=== PATIENT | female | born 1995 | race Two or more races ===

== ENCOUNTER 2018-07-16 16:07 | Emergency (ER) | payer OTHER ==
[~2018-07-16] VITALS: Ht 160 cm; Wt 85.4 kg
[2018-07-16] MEDS ORDERED: ONDANSETRON PF 4 MG/2 ML VIAL. ONE (16:41)
[2018-07-16] MEDS ORDERED: IV NORMAL SALINE 1,000ML 1,000 ML IV ONE ×4 (16:45→19:00)
[2018-07-16 16:50] LABS: BASO # 0.1 x10^3/uL (0.0-0.2); BASO % 0 % (0-3); EOS # 0.1 x10^3/uL (0.0-0.7); EOS % 0 % (0-3); HEMATOCRIT 43.7 % (36.0-47.0); LYMPH # 1.3 x10^3/uL (1.0-4.8); LYMPH % 7 % (24-48); MEAN CORPUSCULAR HEMOGLOBIN 30 pg (25-35); MEAN CORPUSCULAR HGB CONC 34 g/dL (31-37); MEAN CORPUSCULAR VOLUME 87 fL (79-100); MONO # 0.9 x10^3/uL (0.0-1.1); MONO % 5 % (0-9); NEUT # 15.6 x10^3uL (1.8-7.7); NEUT % 87 % (31-73); PLATELET COUNT 300 x10^3/uL (140-400); RED BLOOD COUNT 5.02 x10^6/uL (3.50-5.40); RED CELL DISTRIBUTION WIDTH 13.2 % (11.5-14.5); WHITE BLOOD COUNT 17.9 x10^3/uL (4.0-11.0)
--- NOTE | 2018-07-16 17:02 | PHYS DOC ---
Past History Past Medical History: No Pertinent History Past Surgical History: No Surgical History Alcohol Use: Occasionally Drug Use: None Adult General Chief Complaint Chief Complaint: ABDOMINAL PAIN HPI HPI 23-year-old female presents with diarrhea, abdominal cramping, nausea without vomiting. Patient states that she is having many episodes of diarrhea that started yesterday. The diarrhea is very watery. She is concerned about dehydration. She has been trying to drink water, but then she gets abdominal cramps and has another episode of diarrhea. She's had some nausea but no vomiting. Her sister has similar symptoms. She denies fever but has had chills. Review of Systems Review of Systems Constitutional: Chills [] Eyes: Denies change in visual acuity, redness, or eye pain [] HENT: Denies nasal congestion or sore throat [] Respiratory: Denies cough or shortness of breath [] Cardiovascular: No additional information not addressed in HPI [] GI: Diffuse abdominal pain, nausea, diarrhea[] : Denies dysuria or hematuria [] Musculoskeletal: Denies back pain or joint pain [] Integument: Denies rash or skin lesions [] Neurologic: Denies headache, focal weakness or sensory changes [] Endocrine: Denies polyuria or polydipsia [] All other systems were reviewed and found to be within normal limits, except as documented in this note. Current Medications Current Medications Current Medications Medications (Trade) Dose Ordered Sig/Natasha Start Time Stop Time Status Last Admin Dose Admin Ondansetron HCl (Zofran) 4 mg STK-MED ONCE 07/16/18 16:41 07/16/18 16:42 DC Sodium Chloride 1,000 ml @ 1,000 mls/hr 1X ONCE 07/16/18 16:45 07/16/18 17:44 Allergies Allergies Allergies Coded Allergies Type Severity Reaction Last Updated Verified No Known Drug Allergies 07/16/18 No Physical Exam Physical Exam Constitutional: Well developed, well nourished, no acute distress, non-toxic appearance. [] HENT: Normocephalic, atraumatic, bilateral external ears normal, oropharynx moist, no oral exudates, nose normal. [] Eyes: PERRLA, EOMI, conjunctiva normal, no discharge. [] Neck: Normal range of motion, no tenderness, supple, no stridor. [] Cardiovascular:Heart rate regular rhythm, no murmur [] Lungs & Thorax: Bilateral breath sounds clear to auscultation [] Abdomen: Bowel sounds normal, soft, no tenderness, no masses, no pulsatile masses. [] Skin: Warm, dry, no erythema, no rash. [] Back: No tenderness, no CVA tenderness. [] Extremities: No tenderness, no cyanosis, no clubbing, ROM intact, no edema. [] Neurologic: Alert and oriented X 3, normal motor function, normal sensory function, no focal deficits noted. [] Psychologic: Affect normal, judgement normal, mood normal. [] Current Patient Data Vital Signs Vital Signs Date Time Temp Pulse Resp B/P (MAP) Pulse Ox O2 Delivery O2 Flow Rate FiO2 07/16/18 16:07 99.8 111 22 100 Room Air Lab Results Laboratory Tests Test 07/16/18 16:15 White Blood Count 17.9 x10^3/uL (4.0-11.0) H Red Blood Count 5.02 x10^6/uL (3.50-5.40) Hemoglobin 15.0 g/dL (12.0-15.5) Hematocrit 43.7 % (36.0-47.0) Mean Corpuscular Volume 87 fL (79-100) Mean Corpuscular Hemoglobin 30 pg (25-35) Mean Corpuscular Hemoglobin Concent 34 g/dL (31-37) Red Cell Distribution Width 13.2 % (11.5-14.5) Platelet Count 300 x10^3/uL (140-400) Neutrophils (%) (Auto) 87 % (31-73) H Lymphocytes (%) (Auto) 7 % (24-48) L Monocytes (%) (Auto) 5 % (0-9) Eosinophils (%) (Auto) 0 % (0-3) Basophils (%) (Auto) 0 % (0-3) Neutrophils # (Auto) 15.6 x10^3uL (1.8-7.7) H Lymphocytes # (Auto) 1.3 x10^3/uL (1.0-4.8) Monocytes # (Auto) 0.9 x10^3/uL (0.0-1.1) Eosinophils # (Auto) 0.1 x10^3/uL (0.0-0.7) Basophils # (Auto) 0.1 x10^3/uL (0.0-0.2) Platelet Estimate Pending EKG EKG Sinus tachycardia, rate 122, normal axis, no ST elevations or depressions.[] Radiology/Procedures Radiology/Procedures [] Impressions: AP view abdomen 07/16/2018 CLINICAL INDICATION: Abdominal pain. COMPARISON: None. FINDINGS: There is a nonobstructive bowel gas pattern. Visualized osseous structures unremarkable. IMPRESSION: No radiographic evidence of bowel obstruction or pneumoperitoneum. Electronically signed by: Brandyn Hayes MD (07/16/2018 6:44 PM) [facility] DICTATED AND SIGNED BY: BRANDYN HAYES MD DATE: 07/16/181842 CC: SHAWANDA MAIN DO; NAT [place] CNM Course & Med Decision Making Course & Med Decision Making Pertinent Labs and Imaging studies reviewed. (See chart for details) The patient's labs are significant for white count of 17 with a left shift. After 1 L of fluids she is still tachycardic at 122. It is sinus. Urinalysis is pending. KUB is unremarkable. The patient's urinalysis is suggestive of infection. I will treat her with Macrobid for 5 days. Will give the first dose in the ED. I'm also concerned her diarrhea may be infectious given the profuse output, high white count, and volume depletion. I will give her 1 g of azithromycin in the ED. She is stable for discharge at this time. [] Dragon Disclaimer Dragon Disclaimer This electronic medical record was generated, in whole or in part, using a voice recognition dictation system. Departure Departure: Referrals: NAT [place]NADA CNM (PCP) Scripts Nitrofurantoin Monohyd/M-Cryst (MACROBID 100 MG CAPSULE) 100 Mg Capsule 1 CAP PO BID for uti for 5 Days, #10 CAP Prov: SHAWANDA MAIN DO 07/16/18 SHAWANDA MAIN DO Jul 16, 2018 17:02
[2018-07-16 17:05] LABS: ALBUMIN 4.2 g/dL (3.4-5.0); CALCIUM 9.5 mg/dL (8.5-10.1); CREATININE 0.9 mg/dL (0.6-1.0); GFR 77.6; POTASSIUM 3.8 mmol/L (3.5-5.1); TOTAL BILIRUBIN 0.5 mg/dL (0.2-1.0); TOTAL PROTEIN 8.6 g/dL (6.4-8.2)
[2018-07-16] MEDS ORDERED: ONDANSETRON PF 4 MG/2 ML VIAL. IV ONE (17:10)
[2018-07-16 17:23] LABS: % BANDS 17 % (0-9); % LYMPHS 7 % (24-48); % MONOS 5 % (0-10); % SEGS 71 % (35-66); PLT ESTIMATE ADEQUATE (ADEQUATE)
[2018-07-16 17:24] LABS: TOXIC GRANULATION SLIGHT; TOXIC VACUOLATION SLIGHT
[2018-07-16] MEDS ORDERED: LOPERAMIDE 2 MG CAPSULE PO ONE (17:30)
--- NOTE | 2018-07-16 18:47 | RAD ---
AP view abdomen 07/16/2018 CLINICAL INDICATION: Abdominal pain. COMPARISON: None. FINDINGS: There is a nonobstructive bowel gas pattern. Visualized osseous structures unremarkable. IMPRESSION: No radiographic evidence of bowel obstruction or pneumoperitoneum. Electronically signed by: Vidal Hayes MD (07/16/2018 6:44 PM) [facility]
[2018-07-16 19:05] LABS: BACTERIA,URINE MANY /HPF (0-FEW); BILIRUBIN,URINE NEG (NEG); CLARITY,URINE HAZY; COLOR,URINE STRAW; GLUCOSE,URINE NEG (NEG); NITRITE,URINE NEG (NEG); RBC,URINE OCC /HPF (0-2); UROBILINOGEN,URINE 0.2 mg/dL (0.2 mg/dL)
[2018-07-16 19:06] LABS: SQUAMOUS EPITHELIAL CELL,UR MOD /LPF
[2018-07-16] MEDS ORDERED: AZITHROMYCIN 250 MG TABLET. ONE (19:13)
[2018-07-16] MEDS ORDERED: NITROFURANTOIN MONOHYD/M-CRYST 100 MG CAPSULE. PO ONE ×2 (19:13→19:30)
[2018-07-16] MEDS ORDERED: NITR100C62 PO (19:14)
[2018-07-16 19:27] VITALS: BP 114/58
[2018-07-16] MEDS ORDERED: AZITHROMYCIN 250 MG TABLET. PO ONE (19:30)
[2018-07-17] MEDS ORDERED: DIPH1TAB PO (22:44)
[2018-07-17] MEDS ORDERED: ONDA4TAB12 PO (22:44)
--- NOTE | 2018-07-18 14:19 | EKG ---
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 POSSIBLY ABNORMAL ECG RI6.01 Unconfirmed report No previous ECG available for comparison Electronically Signed On 07-18-2018 16:01:40 [employer] OFFICER by Russell Parker
== END 2018-07-16 19:27 | disposition home or self-care (01) ==
LOC: ER 16:07
DX: R19.7 Diarrhea, unspecified (principal); R10.84 Generalized abdominal pain; R11.0 Nausea
CPT/HCPCS: 36415; 74018; 80053; 81001; 81025; 83690; 85007; 85025; 87086; 96361; 96374; 99285; J0456; J2405; J7030

== ENCOUNTER 2018-07-17 20:59 | Emergency (ER) | payer OTHER ==
[~2018-07-17] VITALS: Ht 160 cm; Wt 83.9 kg
[~2018-07-17 20:59] MED LIST: NITR100C62 PO
[2018-07-17] MEDS ORDERED: ONDANSETRON PF 4 MG/2 ML VIAL. ONE (21:40)
[2018-07-17] MEDS ORDERED: DIPHENOXYLATE/ATROPINE TABLET. PO ONE (22:00)
[2018-07-17] MEDS ORDERED: ONDANSETRON PF 4 MG/2 ML VIAL. IV ONE (22:00)
[2018-07-17] MEDS ORDERED: IV NORMAL SALINE 1,000ML 1,000 ML IV SCH (22:00)
[2018-07-17] MEDS ORDERED: ACETAMINOPHEN 500 MG TABLET PO ONE (22:00)
[2018-07-17 22:08] LABS: BASO % 0 % (0-3); EOS % 0 % (0-3); HEMATOCRIT 41.2 % (36.0-47.0); HEMOGLOBIN 14.1 g/dL (12.0-15.5); LYMPH # 1.1 x10^3/uL (1.0-4.8); LYMPH % 10 % (24-48); MEAN CORPUSCULAR HEMOGLOBIN 30 pg (25-35); MEAN CORPUSCULAR HGB CONC 34 g/dL (31-37); MEAN CORPUSCULAR VOLUME 87 fL (79-100); MONO # 0.6 x10^3/uL (0.0-1.1); MONO % 5 % (0-9); NEUT # 9.7 x10^3uL (1.8-7.7); NEUT % 85 % (31-73); PLATELET COUNT 238 x10^3/uL (140-400); RED BLOOD COUNT 4.72 x10^6/uL (3.50-5.40); RED CELL DISTRIBUTION WIDTH 12.7 % (11.5-14.5); WHITE BLOOD COUNT 11.4 x10^3/uL (4.0-11.0)
[2018-07-17 22:22] LABS: ALBUMIN 3.9 g/dL (3.4-5.0); ALBUMIN/GLOBULIN RATIO 0.9 (1.0-1.7); CREATININE 0.9 mg/dL (0.6-1.0); GFR 77.6; POTASSIUM 3.1 mmol/L (3.5-5.1); TOTAL BILIRUBIN 0.7 mg/dL (0.2-1.0); TOTAL PROTEIN 8.3 g/dL (6.4-8.2)
[2018-07-17] MEDS ORDERED: DIPH1TAB PO (22:44)
[2018-07-17] MEDS ORDERED: ONDA4TAB12 PO (22:44)
--- NOTE | 2018-07-17 22:44 | PHYS DOC ---
Past History Past Medical History: No Pertinent History Past Surgical History: No Surgical History Alcohol Use: Occasionally Drug Use: None Adult General Chief Complaint Chief Complaint: NAUSEA/VOMITING/DIARRHEA HPI HPI Patient is a 23-year-old female who presents with complaint of nausea with vomiting and diarrhea. Patient was seen here yesterday with similar complaints and was diagnosed with urinary tract infection. She indicates that she was prescribed antibiotics that she started today. She states that she was having the vomiting and diarrhea yesterday as well and states that they had given her some medication for the symptoms while she was here but was not discharged home with any nausea or diarrhea medication. She states that she has not been able to keep anything down due to the vomiting. She states that either she vomits it up or go straight through her. She does complain of abdominal cramping that she rates as moderate. Review of Systems Review of Systems Constitutional: Complaints of fever and chills[] Respiratory: Denies cough or shortness of breath [] Cardiovascular: No additional information not addressed in HPI [] GI: Complains of abdominal cramping with nausea, vomiting and diarrhea[] : Denies dysuria or hematuria [] Musculoskeletal: Denies back pain or joint pain [] All other systems were reviewed and found to be within normal limits, except as documented in this note. Current Medications Current Medications Current Medications Medications (Trade) Dose Ordered Sig/Natasha Start Time Stop Time Status Last Admin Dose Admin Acetaminophen (Tylenol) 1,000 mg 1X ONCE 07/17/18 22:00 07/17/18 22:01 DC 07/17/18 21:50 1,000 MG Diphenoxylate HCl/ Atropine (Lomotil) 2 tab 1X ONCE 07/17/18 22:00 07/17/18 22:01 DC 07/17/18 21:51 2 TAB Ondansetron HCl (Zofran) 4 mg 1X ONCE 07/17/18 22:00 07/17/18 22:01 DC 07/17/18 21:51 4 MG Sodium Chloride 1,000 ml @ 1,000 mls/hr Q1H 07/17/18 22:00 07/17/18 22:59 07/17/18 21:50 1,000 MLS/HR Allergies Allergies Allergies Coded Allergies Type Severity Reaction Last Updated Verified No Known Drug Allergies 07/16/18 No Physical Exam Physical Exam Constitutional: Well developed, well nourished, no acute distress, non-toxic appearance. [] HENT: Normocephalic, atraumatic, bilateral external ears normal, oropharynx moist, no oral exudates, nose normal. [] Eyes: PERRLA, EOMI, conjunctiva normal, no discharge. [] Neck: Normal range of motion, no tenderness, supple, no stridor. [] Cardiovascular:Heart rate regular rhythm [] Lungs & Thorax: Bilateral breath sounds clear to auscultation [] Abdomen: Bowel sounds normal, soft, no tenderness. [] Skin: Warm, dry, no erythema, no rash. [] Extremities: No tenderness, no cyanosis, no clubbing, ROM intact, no edema. [] Neurologic: Alert and oriented X 3, normal motor function, normal sensory function, no focal deficits noted. [] Current Patient Data Vital Signs Vital Signs Date Time Temp Pulse Resp B/P (MAP) Pulse Ox O2 Delivery O2 Flow Rate FiO2 07/17/18 20:59 100.9 109 20 98 Room Air Lab Results Laboratory Tests Test 07/17/18 21:45 White Blood Count 11.4 x10^3/uL (4.0-11.0) H Red Blood Count 4.72 x10^6/uL (3.50-5.40) Hemoglobin 14.1 g/dL (12.0-15.5) Hematocrit 41.2 % (36.0-47.0) Mean Corpuscular Volume 87 fL (79-100) Mean Corpuscular Hemoglobin 30 pg (25-35) Mean Corpuscular Hemoglobin Concent 34 g/dL (31-37) Red Cell Distribution Width 12.7 % (11.5-14.5) Platelet Count 238 x10^3/uL (140-400) Neutrophils (%) (Auto) 85 % (31-73) H Lymphocytes (%) (Auto) 10 % (24-48) L Monocytes (%) (Auto) 5 % (0-9) Eosinophils (%) (Auto) 0 % (0-3) Basophils (%) (Auto) 0 % (0-3) Neutrophils # (Auto) 9.7 x10^3uL (1.8-7.7) H Lymphocytes # (Auto) 1.1 x10^3/uL (1.0-4.8) Monocytes # (Auto) 0.6 x10^3/uL (0.0-1.1) Eosinophils # (Auto) 0.0 x10^3/uL (0.0-0.7) Basophils # (Auto) 0.0 x10^3/uL (0.0-0.2) Sodium Level 134 mmol/L (136-145) L Potassium Level 3.1 mmol/L (3.5-5.1) L Chloride Level 97 mmol/L (98-107) L Carbon Dioxide Level 26 mmol/L (21-32) Anion Gap 11 (6-14) Blood Urea Nitrogen 7 mg/dL (7-20) Creatinine 0.9 mg/dL (0.6-1.0) Estimated GFR (Cockcroft-Gault) 77.6 BUN/Creatinine Ratio 8 (6-20) Glucose Level 110 mg/dL (70-99) H Calcium Level 9.0 mg/dL (8.5-10.1) Total Bilirubin 0.7 mg/dL (0.2-1.0) Aspartate Amino Transferase (AST) 19 U/L (15-37) Alanine Aminotransferase (ALT) 36 U/L (14-59) Alkaline Phosphatase 86 U/L (46-116) Total Protein 8.3 g/dL (6.4-8.2) H Albumin 3.9 g/dL (3.4-5.0) Albumin/Globulin Ratio 0.9 (1.0-1.7) L EKG EKG [] Radiology/Procedures Radiology/Procedures [] Course & Med Decision Making Course & Med Decision Making Pertinent Labs and Imaging studies reviewed. (See chart for details) [] Dragon Disclaimer Dragon Disclaimer This electronic medical record was generated, in whole or in part, using a voice recognition dictation system. Departure Departure: Impression: Primary Impression: Gastroenteritis Disposition: 01 HOME, SELF-CARE Condition: STABLE Referrals: NAT [place]NA[place] CNM (PCP) Patient Instructions: Viral Gastroenteritis Scripts Diphenoxylate Hcl/Atropine (LOMOTIL TABLET) 1 Each Tablet 1 TAB PO TID PRN for DIARRHEA, #15 TAB Prov: MEMO MARTÍNEZ Jr. DO 07/17/18 Ondansetron (ONDANSETRON ODT) 4 Mg Tab.rapdis 1 TAB PO PRN Q6-8HRS PRN for NAUSEA/VOMITING, #16 TAB Prov: MEMO MARTÍNEZ Jr. DO 07/17/18 MEMO MARTÍNEZ Jr. DO Jul 17, 2018 22:44
[2018-07-17] MEDS ORDERED: POTASSIUM CHLORIDE 20 MEQ TABLET.ER. PO ONE (23:00)
[2018-07-17 23:29] VITALS: BP 108/43
== END 2018-07-17 23:34 | disposition home or self-care (01) ==
LOC: ER 20:59
DX: K52.9 Noninfective gastroenteritis and colitis, unspecified (principal)
CPT/HCPCS: 36415; 80053; 85025; 96361; 96374; 99284; J2405; J7030

== ENCOUNTER 2018-12-01 05:02 | Emergency (ER) | payer OTHER ==
[~2018-12-01] VITALS: Ht 160 cm; Wt 87.1 kg
[~2018-12-01 05:02] MED LIST changes: +DIPH1TAB PO; +ONDA4TAB12 PO
--- NOTE | 2018-12-01 05:04 | ED.ADGEN ---
Past History Past Medical History: No Pertinent History, Gallstones, GERD, UTI Past Surgical History: No Surgical History Alcohol Use: Occasionally Drug Use: None Adult General Chief Complaint Chief Complaint ".. I got this severe Rt. upper abd. and epigastric pain... nauseated.. "... " My mom says it probably gall stones... because in runs in the family..." HPI HPI Patient is a 23 year old female who presents with above hx and complaints of right upper abdomen and epigastric pain. Patient states pain seemed to start after eating at [employer]. Patient has not had previous episodes of gastritis or abd. colic. However biliary colic and stones run in her family on her mother's side. Patient denies any other intake of bad food. No travel. No specific ill contacts. No history trauma. Does have history of prior UTI. No hx of STD. No history immunosuppression. Has had nausea and vomiting. No history of dark or tarry stools. Patient currently rating her pain as 9-10 out of 10. H&H has history of prior repair 2 pregnancies with 3 deliveries. Review of Systems Review of Systems Constitutional: Denies fever or chills [] Eyes: Denies change in visual acuity, redness, or eye pain [] HENT: Denies nasal congestion or sore throat [] Respiratory: Denies cough or shortness of breath [] Cardiovascular: No additional information not addressed in HPI [] GI: Right upper quadrant and epigastric abdominal pain, nausea, vomiting. Denies , bloody stools or diarrhea [] : Denies dysuria or hematuria [] Musculoskeletal: Denies back pain or joint pain [] Integument: Denies rash or skin lesions [] Neurologic: Denies headache, focal weakness or sensory changes [] Endocrine: Denies polyuria or polydipsia [] All other systems were reviewed and found to be within normal limits, except as documented in this note. Family History Family History Multiple family members that have had gallstones- cholecystectomy Current Medications Current Medications Current Medications Medications (Trade) Dose Ordered Sig/Natasha Start Time Stop Time Status Last Admin Dose Admin Ceftriaxone Sodium 1 gm/ Sodium Chloride 50 ml @ 100 mls/hr 1X ONCE 12/01/18 08:30 12/01/18 08:59 DC 12/01/18 08:24 100 MLS/HR Ceftriaxone Sodium (Rocephin) 1 gm STK-MED ONCE 12/01/18 08:15 12/01/18 08:16 DC Famotidine (Pepcid Vial) 20 mg 1X ONCE 12/01/18 06:00 12/01/18 06:01 DC 12/01/18 05:47 20 MG Info (Do NOT chart on this entry -- for MONITORING) 1 each PRN DAILY PRN 12/01/18 06:00 12/01/18 09:58 DC Iohexol (Omnipaque 240 Mg/ml) 30 ml 1X ONCE 12/01/18 06:00 12/01/18 06:01 DC 12/01/18 07:16 30 ML Iohexol (Omnipaque 300 Mg/ml) 75 ml 1X ONCE 12/01/18 06:00 12/01/18 06:01 DC 12/01/18 07:16 75 ML Ketorolac Tromethamine (Toradol 30mg Vial) 30 mg 1X ONCE 12/01/18 06:00 12/01/18 06:01 DC 12/01/18 05:48 30 MG Lactated Ringer's 1,000 ml @ 160 mls/hr 1X ONCE 12/01/18 08:15 12/01/18 09:58 DC 12/01/18 08:21 160 MLS/HR Metronidazole 100 ml @ 100 mls/hr 1X ONCE 12/01/18 08:30 12/01/18 09:29 DC 12/01/18 09:03 100 MLS/HR Morphine Sulfate (Morphine 10mg Syringe) 10 mg 1X ONCE 12/01/18 08:30 12/01/18 08:31 DC Ondansetron HCl (Zofran) 8 mg 1X ONCE 12/01/18 08:30 12/01/18 08:31 DC 12/01/18 08:24 8 MG Sodium Chloride 50 ml @ As Directed STK-MED ONCE 12/01/18 08:14 12/01/18 08:15 DC Allergies Allergies Allergies Coded Allergies Type Severity Reaction Last Updated Verified No Known Drug Allergies 07/16/18 No Physical Exam Physical Exam Constitutional: in acute distress, non-toxic appearance. Rates pain 9/10. [] HENT: Normocephalic, atraumatic, bilateral external ears normal, oropharynx moist, no oral exudates, nose normal. [] Eyes: PERRLA, EOMI, conjunctiva normal, no discharge. [] Neck: Normal range of motion, no tenderness, supple, no stridor. [] Cardiovascular:Heart rate regular rhythm, no murmur [] Lungs & Thorax: Bilateral breath sounds clear to auscultation [] Abdomen: Bowel sounds normal, soft, Rt. upper quadrat and epigastric tenderness , no masses, no pulsatile masses. [] Rebound to Rt., upper quadrant. Patient deferred rectal exam and pelvic exam at this time Skin: Warm, diaphoretic, no erythema, no rash. [] Back: No tenderness, no CVA tenderness. [] Extremities: No tenderness, no cyanosis, no clubbing, ROM intact, no edema. [] No psoas, obturator or heeltap sign Neurologic: Alert and oriented X 3, normal motor function, normal sensory function, no focal deficits noted. [] Psychologic: Affect anxious, judgement normal, mood normal. [] Current Patient Data Vital Signs Vital Signs Date Time Temp Pulse Resp B/P (MAP) Pulse Ox O2 Delivery O2 Flow Rate FiO2 12/01/18 08:00 67 18 127/66 (86) 100 Room Air 12/01/18 05:02 98.1 Lab Results Laboratory Tests Test 12/01/18 05:08 12/01/18 05:15 12/01/18 05:16 Urine Collection Type Unknown Urine Color Yellow Urine Clarity Clear Urine pH 6.0 Urine Specific [place] 1.010 Urine Protein Neg (NEG-TRACE) Urine Glucose (UA) Neg mg/dL (NEG) Urine Ketones (Stick) Neg mg/dL (NEG) Urine Blood Trace (NEG) Urine Nitrite Neg (NEG) Urine Bilirubin Neg (NEG) Urine Urobilinogen Dipstick 0.2 mg/dL (0.2 mg/dL) Urine Leukocyte Esterase Neg (NEG) Urine RBC 0 /HPF (0-2) Urine WBC Occ /HPF (0-4) Urine Squamous Epithelial Cells Occ /LPF Urine Bacteria 0 /HPF (0-FEW) Urine Opiates Screen Neg (NEG) Urine Methadone Screen Neg (NEG) Urine Barbiturates Neg (NEG) Urine Phencyclidine Screen Neg (NEG) Urine Amphetamine/Methamphetamine Neg (NEG) Urine Benzodiazepines Screen Neg (NEG) Urine Cocaine Screen Neg (NEG) Urine Cannabinoids Screen Pos (NEG) Urine Ethyl Alcohol Neg (NEG) White Blood Count 9.4 x10^3/uL (4.0-11.0) Red Blood Count 4.70 x10^6/uL (3.50-5.40) Hemoglobin 14.6 g/dL (12.0-15.5) Hematocrit 41.4 % (36.0-47.0) Mean Corpuscular Volume 88 fL (79-100) Mean Corpuscular Hemoglobin 31 pg (25-35) Mean Corpuscular Hemoglobin Concent 35 g/dL (31-37) Red Cell Distribution Width 13.1 % (11.5-14.5) Platelet Count 299 x10^3/uL (140-400) Neutrophils (%) (Auto) 63 % (31-73) Lymphocytes (%) (Auto) 27 % (24-48) Monocytes (%) (Auto) 7 % (0-9) Eosinophils (%) (Auto) 2 % (0-3) Basophils (%) (Auto) 1 % (0-3) Neutrophils # (Auto) 5.9 x10^3uL (1.8-7.7) Lymphocytes # (Auto) 2.6 x10^3/uL (1.0-4.8) Monocytes # (Auto) 0.7 x10^3/uL (0.0-1.1) Eosinophils # (Auto) 0.2 x10^3/uL (0.0-0.7) Basophils # (Auto) 0.1 x10^3/uL (0.0-0.2) Prothrombin Time 10.3 SEC (9.4-11.4) Prothrombin Time INR 1.0 (0.9-1.1) PTT 29 SEC (23-33) Sodium Level 140 mmol/L (136-145) Potassium Level 4.1 mmol/L (3.5-5.1) Chloride Level 105 mmol/L (98-107) Carbon Dioxide Level 26 mmol/L (21-32) Anion Gap 9 (6-14) Blood Urea Nitrogen 11 mg/dL (7-20) Creatinine 0.7 mg/dL (0.6-1.0) Estimated GFR (Cockcroft-Gault) 103.7 Glucose Level 101 mg/dL (70-99) H Calcium Level 9.1 mg/dL (8.5-10.1) Total Bilirubin 0.3 mg/dL (0.2-1.0) Direct Bilirubin 0.1 mg/dL (0.0-0.2) Aspartate Amino Transferase (AST) 22 U/L (15-37) Alanine Aminotransferase (ALT) 45 U/L (14-59) Alkaline Phosphatase 83 U/L (46-116) Creatine Kinase 133 U/L (26-192) Troponin I Quantitative < 0.017 ng/mL (0-0.055) Total Protein 7.4 g/dL (6.4-8.2) Albumin 4.0 g/dL (3.4-5.0) Lipase 121 U/L (73-393) POC Urine HCG, Qualitative hcg negative (Negative) EKG EKG [] Radiology/Procedures Radiology/Procedures My interpretation acute abdomen film shows no acute cardiopulmonary findings. Some basilar atelectasis. No free air under the diaphragm. Does have stool in the colon. 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 Possible cystitis. Here to have a hemangioma in the liver. See formal report when available.[] Course & Med Decision Making Course & Med Decision Making Pertinent Labs and Imaging studies reviewed. (See chart for details). On re- exam at 0800 hrs. patient's right upper quadrant pain has returned rated 9-10 out of [address] findings suspect may be early cholecystitis without lab findings. Discussed presentation, testing and treatment plan with Dr. Donahue. Patient will be admitted to his service at [facility] with a consult to surgery. Did discuss presentation, testing and treatment plan with Dr. England- will follow patient in a surgical consult with his group. Dr. Wang will follow pt until transfer completed to [facility]. [] Final Impression Final Impression 1. Abdomen pain[] 2. Suspect early cholecystitis-does have cholelithiasis 3. Hx. Possible cystitis- recurrent UTI's 4. Suspect hemangioma of liver Dragon Disclaimer Dragon Disclaimer This electronic medical record was generated, in whole or in part, using a voice recognition dictation system. Dragon Disclaimer This chart was dictated in whole or in part using Voice Recognition software in a busy, high-work load, and often noisy Emergency Department environment. It may contain unintended and wholly unrecognized errors or omissions. Discharge Summary Visit Information Final Diagnosis Problems Medical Problems: (1) Gall stones Status: Acute (2) Pain in the abdomen Status: Acute Brief Hospital Course Allergies Allergies Coded Allergies Type Severity Reaction Last Updated Verified No Known Drug Allergies 07/16/18 No Vital Signs Vital Signs Date Time Temp Pulse Resp B/P (MAP) Pulse Ox O2 Delivery O2 Flow Rate FiO2 12/01/18 08:00 67 18 127/66 (86) 100 Room Air 12/01/18 05:02 98.1 Lab Results Laboratory Tests Test 12/01/18 05:08 12/01/18 05:15 12/01/18 05:16 Urine Collection Type Unknown Urine Color Yellow Urine Clarity Clear Urine pH 6.0 Urine Specific [place] 1.010 Urine Protein Neg (NEG-TRACE) Urine Glucose (UA) Neg mg/dL (NEG) Urine Ketones (Stick) Neg mg/dL (NEG) Urine Blood Trace (NEG) Urine Nitrite Neg (NEG) Urine Bilirubin Neg (NEG) Urine Urobilinogen Dipstick 0.2 mg/dL (0.2 mg/dL) Urine Leukocyte Esterase Neg (NEG) Urine RBC 0 /HPF (0-2) Urine WBC Occ /HPF (0-4) Urine Squamous Epithelial Cells Occ /LPF Urine Bacteria 0 /HPF (0-FEW) Urine Opiates Screen Neg (NEG) Urine Methadone Screen Neg (NEG) Urine Barbiturates Neg (NEG) Urine Phencyclidine Screen Neg (NEG) Urine Amphetamine/Methamphetamine Neg (NEG) Urine Benzodiazepines Screen Neg (NEG) Urine Cocaine Screen Neg (NEG) Urine Cannabinoids Screen Pos (NEG) Urine Ethyl Alcohol Neg (NEG) White Blood Count 9.4 x10^3/uL (4.0-11.0) Red Blood Count 4.70 x10^6/uL (3.50-5.40) Hemoglobin 14.6 g/dL (12.0-15.5) Hematocrit 41.4 % (36.0-47.0) Mean Corpuscular Volume 88 fL (79-100) Mean Corpuscular Hemoglobin 31 pg (25-35) Mean Corpuscular Hemoglobin Concent 35 g/dL (31-37) Red Cell Distribution Width 13.1 % (11.5-14.5) Platelet Count 299 x10^3/uL (140-400) Neutrophils (%) (Auto) 63 % (31-73) Lymphocytes (%) (Auto) 27 % (24-48) Monocytes (%) (Auto) 7 % (0-9) Eosinophils (%) (Auto) 2 % (0-3) Basophils (%) (Auto) 1 % (0-3) Neutrophils # (Auto) 5.9 x10^3uL (1.8-7.7) Lymphocytes # (Auto) 2.6 x10^3/uL (1.0-4.8) Monocytes # (Auto) 0.7 x10^3/uL (0.0-1.1) Eosinophils # (Auto) 0.2 x10^3/uL (0.0-0.7) Basophils # (Auto) 0.1 x10^3/uL (0.0-0.2) Prothrombin Time 10.3 SEC (9.4-11.4) Prothromb Time International Ratio 1.0 (0.9-1.1) Activated Partial Thromboplast Time 29 SEC (23-33) Sodium Level 140 mmol/L (136-145) Potassium Level 4.1 mmol/L (3.5-5.1) Chloride Level 105 mmol/L (98-107) Carbon Dioxide Level 26 mmol/L (21-32) Anion Gap 9 (6-14) Blood Urea Nitrogen 11 mg/dL (7-20) Creatinine 0.7 mg/dL (0.6-1.0) Estimated GFR (Cockcroft-Gault) 103.7 Glucose Level 101 mg/dL (70-99) Calcium Level 9.1 mg/dL (8.5-10.1) Total Bilirubin 0.3 mg/dL (0.2-1.0) Direct Bilirubin 0.1 mg/dL (0.0-0.2) Aspartate Amino Transf (AST/SGOT) 22 U/L (15-37) Alanine Aminotransferase (ALT/SGPT) 45 U/L (14-59) Alkaline Phosphatase 83 U/L (46-116) Creatine Kinase 133 U/L (26-192) Troponin I Quantitative < 0.017 ng/mL (0-0.055) Total Protein 7.4 g/dL (6.4-8.2) Albumin 4.0 g/dL (3.4-5.0) Lipase 121 U/L (73-393) Bedside Urine HCG, Qualitative hcg negative (Negative) Brief Hospital Course Ms. Garrido is a 23 old female who presented with Rt. upper abd. pain suspect be Biliary colic & Stones. Transfer to Dr. Adriana MATHEWS, for consult with surgical group. Discharge Information Condition at Discharge: Stable Disposition/Orders: D/C to Another Facility Dischare Medications Current Medications Lactated Ringer's 1,000 ml @ 1,000 mls/hr Q1H IV Last administered on at 05:47; Admin Dose 1,000 MLS/HR; Start 12/01/18 at 06:00; Stop 12/01/18 at 06:59; Status DC Ondansetron HCl (Zofran) 8 mg 1X ONCE IV Last administered on 12/01/18at 05:48 ; Admin Dose 8 MG; Start 12/01/18 at 06:00; Stop 12/01/18 at 06:01; Status DC Famotidine (Pepcid Vial) 20 mg 1X ONCE IVP Last administered on 12/01/18at 05: 47; Admin Dose 20 MG; Start 12/01/18 at 06:00; Stop 12/01/18 at 06:01; Status DC Ketorolac Tromethamine (Toradol 30mg Vial) 30 mg 1X ONCE IV Last administered on 12/01/18at 05:48; Admin Dose 30 MG; Start 12/01/18 at 06:00; Stop 12/01/18 at 06:01; Status DC Iohexol (Omnipaque 240 Mg/ml) 30 ml 1X ONCE PO Last administered on 12/01/18at 07:16; Admin Dose 30 ML; Start 12/01/18 at 06:00; Stop 12/01/18 at 06:01; Status DC Iohexol (Omnipaque 300 Mg/ml) 75 ml 1X ONCE IV Last administered on 12/01/18at 07:16; Admin Dose 75 ML; Start 12/01/18 at 06:00; Stop 12/01/18 at 06:01; Status DC Info (Do NOT chart on this entry -- for MONITORING) 1 each PRN DAILY PRN MC SEE COMMENTS; Start 12/01/18 at 06:00; Stop 12/01/18 at 09:58; Status DC Ceftriaxone Sodium 1 gm/ Sodium Chloride 50 ml @ 100 mls/hr 1X ONCE IV Last administered on 12/01/18at 08:24; Admin Dose 100 MLS/HR; Start 12/01/18 at 08:30 ; Stop 12/01/18 at 08:59; Status DC Metronidazole 100 ml @ 100 mls/hr 1X ONCE IV Last administered on 12/01/18at 09:03; Admin Dose 100 MLS/HR; Start 12/01/18 at 08:30; Stop 12/01/18 at 09:29; Status DC Morphine Sulfate (Morphine 10mg Syringe) 10 mg 1X ONCE SQ ; Start 12/01/18 at 08:30; Stop 12/01/18 at 08:31; Status DC Ondansetron HCl (Zofran) 8 mg 1X ONCE IV Last administered on 12/01/18at 08:24 ; Admin Dose 8 MG; Start 12/01/18 at 08:30; Stop 12/01/18 at 08:31; Status DC Lactated Ringer's 1,000 ml @ 160 mls/hr 1X ONCE IV Last administered on at 08:21; Admin Dose 160 MLS/HR; Start 12/01/18 at 08:15; Stop 12/01/18 at 09: 58; Status DC Sodium Chloride 50 ml @ As Directed STK-MED ONCE .ROUTE ; Start 12/01/18 at 08: 14; Stop 12/01/18 at 08:15; Status DC Ceftriaxone Sodium (Rocephin) 1 gm STK-MED ONCE .ROUTE ; Start 12/01/18 at 08:15 ; Stop 12/01/18 at 08:16; Status DC Active Scripts Active Lomotil Tablet (Diphenoxylate Hcl/Atropine) 1 Each Tablet 1 Tab PO TID PRN Ondansetron Odt (Ondansetron) 4 Mg Tab.rapdis 1 Tab PO PRN Q6-8HRS PRN Macrobid 100 Mg Capsule (Nitrofurantoin Monohyd/M-Cryst) 100 Mg Capsule 1 Cap PO BID 5 Days KATIE GONZALEZ MD Dec 01, 2018 05:04
[2018-12-01 05:32] LABS: BARBITURATES NEG (NEG); BENZODIAZEPINES NEG (NEG); CANNABINOIDS POS (NEG); COCAINE NEG (NEG); METHADONE NEG (NEG); OPIATES NEG (NEG); PHENCYCLIDINE NEG (NEG)
[2018-12-01 05:34] LABS: BILIRUBIN,URINE NEG (NEG); CLARITY,URINE CLEAR; COLOR,URINE YELLOW; GLUCOSE,URINE NEG (NEG)
[2018-12-01 05:35] LABS: BACTERIA,URINE 0 /HPF (0-FEW); NITRITE,URINE NEG (NEG); RBC,URINE 0 /HPF (0-2); SQUAMOUS EPITHELIAL CELL,UR OCC /LPF; UROBILINOGEN,URINE 0.2 mg/dL (0.2 mg/dL); WBC,URINE OCC /HPF (0-4)
[2018-12-01 05:37] LABS: AMPHETAMINE/METHAMPHETAMINE NEG (NEG)
[2018-12-01 05:41] LABS: BASO # 0.1 x10^3/uL (0.0-0.2); BASO % 1 % (0-3); EOS # 0.2 x10^3/uL (0.0-0.7); EOS % 2 % (0-3); HEMATOCRIT 41.4 % (36.0-47.0); HEMOGLOBIN 14.6 g/dL (12.0-15.5); LYMPH # 2.6 x10^3/uL (1.0-4.8); LYMPH % 27 % (24-48); MEAN CORPUSCULAR HEMOGLOBIN 31 pg (25-35); MEAN CORPUSCULAR HGB CONC 35 g/dL (31-37); MEAN CORPUSCULAR VOLUME 88 fL (79-100); MONO # 0.7 x10^3/uL (0.0-1.1); MONO % 7 % (0-9); NEUT # 5.9 x10^3uL (1.8-7.7); NEUT % 63 % (31-73); PLATELET COUNT 299 x10^3/uL (140-400); RED CELL DISTRIBUTION WIDTH 13.1 % (11.5-14.5); WHITE BLOOD COUNT 9.4 x10^3/uL (4.0-11.0)
[2018-12-01] MEDS ORDERED: IOHEXOL 300 MG/ML 75 ML VIAL. IV ONE (06:00)
[2018-12-01] MEDS ORDERED: IOHEXOL 240 MG/ML 50ML VIAL. PO ONE (06:00)
[2018-12-01] MEDS ORDERED: CONTRAST GIVEN MC PRN (06:00)
[2018-12-01] MEDS ORDERED: KETOROLAC 30 MG/ML VIAL. IV ONE (06:00)
[2018-12-01] MEDS ORDERED: ONDANSETRON PF 4 MG/2 ML VIAL. IV ONE ×2 (06:00→08:30)
[2018-12-01] MEDS ORDERED: FAMOTIDINE 20 MG/2 ML VIAL IVP ONE (06:00)
[2018-12-01] MEDS ORDERED: IV RINGERS SOLUTION,LACTATED 1,000 ML IV SCH (06:00)
[2018-12-01 06:06] LABS: CALCIUM 9.1 mg/dL (8.5-10.1); CREATININE 0.7 mg/dL (0.6-1.0); DIRECT BILIRUBIN 0.1 mg/dL (0.0-0.2); GFR 103.7; POTASSIUM 4.1 mmol/L (3.5-5.1); TOTAL BILIRUBIN 0.3 mg/dL (0.2-1.0)
[2018-12-01 06:33] LABS: TOTAL PROTEIN 7.4 g/dL (6.4-8.2)
--- NOTE | 2018-12-01 07:43 | RAD ---
Acute abdomen series with chest, 3 views, 12/01/2018: HISTORY: Right upper flank and abdominal pain, nausea and vomiting Gas is present in large and small bowel without significant bowel distention. Several air-fluid levels are present in the central abdomen. No free air is seen in the abdomen. There is no evidence organomegaly or abnormal abdominal calcification. The heart size is normal. The lungs are clear. There is no evidence of pleural fluid. IMPRESSION: Several air-fluid levels in the midabdomen suggest a mild ileus. Electronically signed by: Jude Carmona MD (12/01/2018 7:40 AM) [facility]
--- NOTE | 2018-12-01 07:46 | RAD ---
DATE OF SERVICE: 12/01/2018 7:10 AM EXAM: CT scan of the abdomen and pelvis with intravenous contrast. CLINICAL HISTORY: Upper abdominal pain, nausea, vomiting. TECHNIQUE: Axial CT images were obtained through the abdomen and pelvis following the administration of intravenous and oral contrast. Multiplanar 2D reformatted images were also reviewed. Dose lowering technique(s) such as automated exposure control, iterative reconstruction, and mA and/or KV adjustment for patient size was utilized for this examination. CONTRAST: 75 ml of Omnipaque-300. COMPARISON: Abdominal radiograph submitted 12/01/2018 at 6:12 AM and 6:13 AM FINDINGS: No bowel obstruction, pneumoperitoneum or free fluid is seen in the abdomen or pelvis. The appendix is normal in appearance. Cholelithiasis is present with a gallstone seen in the region of the gallbladder neck. The gallbladder is not grossly distended and there is no significant gallbladder wall thickening or pericholecystic inflammation or fluid to strongly suggest acute cholecystitis. If there is clinical concern for early/mild acute cholecystitis, nuclear medicine hepatobiliary scan can be considered to evaluate for cystic duct obstruction. There is no biliary ductal dilatation. There is a subcentimeter hypodensity in the dome of the liver anteriorly which is too small to accurately characterize but most likely represents a cyst or hemangioma. The pancreas, spleen, adrenal glands, and kidneys are unremarkable in appearance. The gynecologic organs demonstrate an unremarkable CT appearance. No abdominopelvic lymphadenopathy is seen. There is thickening of the urinary bladder wall which is more prominent than expected for degree of distention. No perivesical inflammation is seen. This may represent cystitis. The abdominal aorta is normal in course and caliber without aneurysm or dissection. Visualized portions of the lung bases are clear. The skeleton is unremarkable in appearance. IMPRESSION: 1. Cholelithiasis without definite CT evidence for acute cholecystitis. 2. Possible cystitis. 3. Subcentimeter probable cyst or hemangioma in the liver. Electronically signed by: Parish Bell MD (12/01/2018 7:43 AM) [facility]
[2018-12-01 08:00] VITALS: BP 127/66
[2018-12-01] MEDS ORDERED: IV NORMAL SALINE 50ML 50 ML ONE (08:14)
[2018-12-01] MEDS ORDERED: cefTRIAXone SODIUM 1 GM VIAL ONE (08:15)
[2018-12-01] MEDS ORDERED: IV RINGERS SOLUTION,LACTATED 1,000 ML IV ONE (08:15)
[2018-12-01] MEDS ORDERED: MORPHINE SULFATE 10 MG/ML SYRINGE. SQ ONE (08:30)
== END 2018-12-01 09:55 | disposition short-term general hospital (02) ==
LOC: ER 05:02
DX: K80.20 Calculus of gallbladder without cholecystitis without obstruction (principal); K21.9 Gastro-esophageal reflux disease without esophagitis; R11.2 Nausea with vomiting, unspecified; Z87.440 Personal history of urinary (tract) infections
CPT/HCPCS: 36415; 74022; 74177; 80048; 80076; 80307; 81001; 81025; 82550; 83690; 84484; 85025; 85610; 85730; 96361; 96365; 96367; 96375; 96376; 99285; J0696; J1885; J2405; J3490; J7120; Q9966; Q9967